=== PATIENT | female | born 1955 | race Caucasian/White ===

== ENCOUNTER 2017-12-31 20:16 | Emergency (ER) | payer OTHER ==
[~2017-12-31] VITALS: Ht 152.4 cm; Wt 67.1 kg
[2017-12-31] MEDS ORDERED: PROGRAF1 MG (20:27)
[2017-12-31 20:41] LABS: URINE BLOOD 2+ (Negative); URINE CLARITY CLEAR; URINE COLOR YELLOW; URINE GLUCOSE-RANDOM NEGATIVE (Negative); URINE KETONES NEGATIVE (Negative); URINE LEUKOCYTES-REFLEX NEGATIVE (Negative); URINE NITRITE-REFLEX NEGATIVE (Negative); URINE PROTEIN NEGATIVE (Negative); URINE SPECIFIC GRAVITY >= 1.030 (1.005-1.030); URINE UROBILINOGEN 0.2 E.U./dl (0.2-1.0)
[2017-12-31 20:42] LABS: URINE BILIRUBIN 1+ (Negative)
[2017-12-31 20:45] LABS: ICTOTEST (BILI CONFIRMATORY) Negative (Negative)
[2017-12-31] MEDS ORDERED: PYRIDIUM200 MG PO ×3 (20:51→20:52)
[2017-12-31 20:59] LABS: SQUAMOUS 4-10 Moderate /LPF (0-3)
[2017-12-31 21:00] LABS: BACTERIA-REFLEX 1-9 Few /HPF (None Seen); CASTS None Seen /LPF (None Seen); CRYSTALS None Seen /LPF (None Seen); MUCUS None Seen strn/LPF (None Seen); URINE RBC 3-10 Few /HPF (0-2); URINE WBC-REFLEX None Seen /HPF (0-5)
[2017-12-31] MEDS ORDERED: FLAGYL 250 MG250 MG PO (21:10)
[2017-12-31 21:20] VITALS: BP 144/80
== END 2017-12-31 21:20 | disposition home or self-care (01) ==
LOC: M.ERS 20:16
PROVIDERS: Nurse Practitioner Family
DX: A59.03 Trichomonal cystitis and urethritis (principal); J00 Acute nasopharyngitis [common cold]